=== PATIENT | male | born 1985 | race Two or more races ===

== ENCOUNTER → 2024-05-30 | Outpatient (CLI) | payer MEDICAID, SELFPAY ==
--- NOTE | 2024-05-30 14:30 | XR_ITS ---
Examination: MRI right foot, without contrast Date and time of exam: May 30, 2024 1526 hours Comparison February 21, 2024 INDICATIONS: Lateral stabbing foot pain 7 years worse the last year, osteonecrosis dome the talus Achilles tendinosis on MR study February 21, 2024 Technique: Multiple axial sagittal and coronal images of the right foot have been obtained with the Siemens high-resolution 1.5 [employer] MRI scanner. Images obtained include T2-weighted fat-suppressed sagittal sections, TR 3500, TE 46, T2 weighted coronal fat suppressed images, TR 3050, TE 84, T2-weighted transverse fat suppressed images, TR 3260, TE 63, proton density transverse images, TR 4720 TE 46, and T1 weighted coronal images, TR 560, TE 13. Findings: 6 mm focus osteonecrosis dome of the talus No occult fracture or marrow edema Minimal thickening of the plantar fascia Negative for sinus disease syndrome No cortical bone destruction No edema or soft tissue abscess depicted IMPRESSION: Stable 6 mm focus of osteonecrosis dome of the talus Local fracture bone contusion marrow edema Negative for sinus Tarsi syndrome Mild plantar fasciitis Recommend plain films foot follow-up for correlation
== END | disposition home or self-care (01) ==
PROVIDERS: PCP Family Medicine; Referring Provider Podiatrist; Visit Provider Podiatrist
DX: M87.874 Other osteonecrosis, right foot (principal); M72.2 Plantar fascial fibromatosis; S90.31XA Contusion of right foot, initial encounter; X58.XXXA Exposure to other specified factors, initial encounter
CPT/HCPCS: 73718